=== PATIENT | female | born 1990 | race Caucasian/White ===

== ENCOUNTER 2023-09-30 05:55 | Inpatient (IN) | payer BC ==
--- NOTE | 2023-09-29 15:59 | P.HPOB ---
History of Present Illness H&P Date: 09/29/23 Chief Complaint: Induction of labor This is a 33 y.o. female, 3, para 1, with an estimated date of confinement of 09/29/2023, estimated gestational age of 40-1/7 weeks, who presents for induction of labor. She complains of irregular contractions and pressure. has been uncomplicated. labs: GC/Chlamydia/Trich-neg Hemoglobin-13 Blood type-A+ Antibody screen-neg Rubella-immune RPR-NR HIV-NR Hepatitis C-neg Random glucose-83 Antibody screen-neg Hepatitis B surface antigen-neg 1 hr. GTT-102 GBS-neg OB Hx: . History of 1 miscarriage and 1 vaginal delivery at term. 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 Review of Systems Constitutional: Denies chills, Denies fever Eyes: denies blurred vision, denies pain Ears, nose, mouth and throat: Denies headache, Denies sore throat Cardiovascular: Denies chest pain, Denies shortness of breath Respiratory: Denies cough Gastrointestinal: Reports abdominal pain (irregular contractions) Genitourinary: Reports pelvic pain, Reports Musculoskeletal: Reports low back pain Integumentary: Denies pruritus, Denies rash Neurological: Denies numbness, Denies weakness Psychiatric: Reports anxiety Past Medical History Past Medical History: No Reported History History of Any Multi-Drug Resistant Organisms: None Reported Additional Past Surgical History / Comment(s): [place] teeth Past Anesthesia/Blood Transfusion Reactions: No Reported Reaction Past Psychological History: Anxiety Smoking Status: Never smoker Past Alcohol Use History: None Reported Past Drug Use History: None Reported - Past Family History Mother Family Medical History: No Reported History Medications and Allergies Home Medications Medication Instructions Recorded Confirmed Type No Known Home Medications 11/04/19 11/04/19 History Allergies Allergy/AdvReac Type Severity Reaction Status Date / Time amoxicillin [From Augmentin] Allergy Unknown Verified 11/04/19 20:08 Childhood clavulanic acid Allergy Unknown Verified 11/04/19 20:08 [From Augmentin] Childhood oseltamivir [From Tamiflu] Allergy Rash/Hives Verified 11/04/19 20:08 Exam Osteopathic Statement: *. No significant issues noted on an osteopathic structural exam other than those noted in the History and Physical/Consult. HEENT: within normal limits Heart: regular rate and rhythm Lungs: clear to auscultation bilaterally Abdomen: , non-tender Cervix: 1.5 cm/70%/-2 heart tones: 140's by doppler Extremities: neg. Adan's Assessment and Plan (1) 40 weeks gestation of Status: Acute Code(s): Z3A.40 - 40 WEEKS GESTATION OF SNOMED Code(s): 40113280 Plan: Admission for oxytocin induction of labor. Expectant management. Epidural anesthesia if desired.
[2023-09-30] MEDS ORDERED: METHYLERGONOVINE 0.2 MG/ML 1 ML AMP IM PRN (06:11)
[2023-09-30] MEDS ORDERED: OXYTOCIN 30 UNITS/500 ML NS 30 UNIT in SALINE 1 500ML.BAG IV SCH (06:11)
[2023-09-30] MEDS ORDERED: OXYTOCIN 10 UNIT/ML 1 ML VIAL IM PRN (06:11)
[2023-09-30] MEDS ORDERED: CARBOPROST TROMETHAMINE 250 MCG/ML 1 ML AMP IM PRN (06:11)
[2023-09-30] MEDS ORDERED: LIDOCAINE 1% (10MG/ML) FOR IV START INTRADERMA PRN (06:11)
[2023-09-30] MEDS ORDERED: miSOPROStoL 200 MCG TAB PO PRN (06:11)
[2023-09-30] MEDS ORDERED: TERBUTALINE 1 MG/ML VIAL SQ PRN (06:11)
[2023-09-30] MEDS ORDERED: TRANEXAMIC 1,000 MG/100ML-NACL 1,000 MG in EMPTY BAG 1 BAG IV PRN (06:11)
[2023-09-30] MEDS ORDERED: LIDOCAINE 0.5% (PF) 5 MG/ML (50 ML SDV) SQ PRN (06:11)
[2023-09-30] MEDS: LACTATED RINGERS 1,000 ML IV SCH ×2 (06:40→12:33)
[2023-09-30 07:41] LABS: Basophils % (A) 0 %; Eosinophils # (A) 0.1 k/uL (0-0.7); Eosinophils % (A) 1 %; HCT 34.9 % (34.0-46.0); HGB 11.5 gm/dL (11.4-16.0); Hypochromasia Moderate; Lymphocytes # (A) 2.6 k/uL (1.0-4.8); Lymphocytes % (A) 27 %; MCHC 32.9 g/dL (31.0-37.0); MCV 85.1 fL (80.0-100.0); Mean Platelet Volume 8.7; Monocytes # (A) 0.4 k/uL (0-1.0); Monocytes % (A) 4 %; Neutrophils # (A) 6.5 k/uL (1.3-7.7); Neutrophils % (A) 66 %; Platelet Count 335 k/uL (150-450); Poikilocytosis Slight; RDW 13.7 % (11.5-15.5); WBC 9.8 k/uL (3.8-10.6)
[2023-09-30] MEDS ORDERED: NALBUPHINE 10 MG/ML (10 ML MDV) IV PRN (11:39)
[2023-09-30] MEDS ORDERED: SODIUM CHLORIDE 0.9% 250 ML BAG ONE (13:06)
[2023-09-30] MEDS ORDERED: ROPIVACAINE 5 MG/ML 30 ML VIAL ONE (13:06)
[2023-09-30] MEDS ORDERED: fentaNYL (PF) 50 MCG/ML 5 ML AMP ONE (13:06)
[2023-09-30] MEDS ORDERED: diphenhydrAMINE 50 MG CAP PO PRN (14:18)
[2023-09-30] MEDS ORDERED: HYDROCORTISONE 2.5% RECTAL CREAM 30 GM TUBE RECTAL PRN (14:18)
[2023-09-30] MEDS ORDERED: BENZOCAINE/MENTHOL SPRAY 1 GM/SPRAY AEROSOL TOPICAL PRN (14:18)
[2023-09-30] MEDS ORDERED: ZOLPIDEM 5 MG TAB PO PRN (14:18)
[2023-09-30] MEDS ORDERED: ACETAMINOPHEN TAB 325 MG TAB PO PRN (14:18)
[2023-09-30] MEDS ORDERED: diphenhydrAMINE 50 MG/ML 1 ML VIAL IVP PRN ×2 (14:18)
[2023-09-30] MEDS ORDERED: LANOLIN CREAM 5 GM TUBE TOPICAL PRN (14:18)
[2023-09-30] MEDS ORDERED: diphenhydrAMINE 25 MG CAP PO PRN (14:18)
[2023-09-30] MEDS ORDERED: SIMETHICONE 80 MG CHEWABLE PO PRN (14:18)
[2023-09-30] MEDS: IBUPROFEN 600 MG TAB PO PRN ×2 (15:12→20:58)
--- NOTE | 2023-09-30 16:44 | P.PROBDLV ---
Vaginal Delivery Note - . Vaginal Delivery Note: The patient progressed to complete dilation after oxytocin induction of labor and artificial rupture membranes. She actually went to complete fairly rapidly after her epidural. She began pushing. She pushed for approximately 10 minutes and then 's head came to a crown. With one further push, the infant's head delivered across the perineum in a right occiput anterior lie. At this point the anterior shoulder did not immediately deliver. I palpated and tried to rotate the shoulder and a counterclockwise manner anteriorly. I had her push one further time and initially this did not relieve the shoulder dystocia. I then reached in and posteriorly and rocked the posterior shoulder and the counterclockwise manner and then had her push one further time and the infant's anterior shoulder did deliver within 1 minute. Nuchal cord times one was reduced around the 's body with delivery. was placed on mother's abdomen and nose and mouth were again bulb suctioned. Cord was then clamped and cut and infant was taken to warmer for evaluation. A viable female infant is noted with scores of 8 at 1 minute and 9 at 5 minutes and infant weight of 8 pounds 8.2 ounces. Placenta then delivered intact with a three-vessel cord. Uterus contracted initially fairly well and then became slightly boggy. A gloved hand was placed within the uterine cavity and some more pieces of membrane were removed. Uterus then firmed up fairly well. Inspection of the perineum revealed a right periurethral laceration and a small first-degree perineal laceration. These areas were anesthetized with 1% lidocaine and then sutured with 3-0 Vicryl suture in a running locked fashion. Estimated blood loss is approximately 200 mL's. Both mother and infant are in stable condition. Patient was counseled regarding the shoulder dystocia and advised in the future if she does decide to have another baby that she may want to consider delivery.
[2023-09-30] MEDS: SENNOSIDES-DOCUSATE SODIUM 1 EACH TAB PO SCH (20:58)
[2023-10-01] MEDS: IBUPROFEN 600 MG TAB PO PRN ×2 (02:43→07:56)
[2023-10-01 07:16] LABS: Basophils % (A) 0 %; Eosinophils # (A) 0.1 k/uL (0-0.7); Eosinophils % (A) 1 %; Hypochromasia Moderate; Lymphocytes # (A) 2.3 k/uL (1.0-4.8); Lymphocytes % (A) 20 %; MCH 27.9 pg (25.0-35.0); MCHC 32.6 g/dL (31.0-37.0); MCV 85.7 fL (80.0-100.0); Mean Platelet Volume 7.7; Monocytes # (A) 0.4 k/uL (0-1.0); Monocytes % (A) 3 %; Neutrophils # (A) 8.5 k/uL (1.3-7.7); Neutrophils % (A) 74 %; Platelet Count 262 k/uL (150-450); Poikilocytosis Slight; RBC 3.39 m/uL (3.80-5.40); RDW 13.9 % (11.5-15.5); WBC 11.5 k/uL (3.8-10.6)
[2023-10-01 07:31] LABS: HGB 9.5 gm/dL (11.4-16.0)
[2023-10-01] MEDS: SENNOSIDES-DOCUSATE SODIUM 1 EACH TAB PO SCH (07:56)
[2023-10-01 08:41] VITALS: BP 120/79; PULSE 82; RESP 17; TEMP 97.8
--- NOTE | 2023-10-01 08:41 | P.DS ---
Providers Date of admission: 09/30/23 05:55 Expected date of discharge: 10/01/23 Attending physician: Olga Lidia Powell Primary care physician: Stated None - Discharge Diagnosis(es) (1) 40 weeks gestation of Current Visit: No Status: Acute Hospital Course: This is a 33-year-old female 3 para 1 with an estimated date of confinement of 09/29/2023, estimated gestational age of 40 and one sevenths weeks, who underwent oxytocin induction of labor and delivered vaginally a viable female with scores of 8 at 1 minute and 9 at 5 minutes and infant weight of 8 pounds 8.2 ounces on 09/30/2023. Her delivery was complicated by a shoulder dystocia that was relieved within 1 minute. Please see delivery summary for details of delivery. Her course has been uncomplicated. She is breast-feeding. Lochia is decreasing. Pain has been fairly well-controlled. Vital signs are stable. Abdomen is soft with fundus firm and nontender. Extremities show negative Homans. Impression is status post vaginal delivery complicated by shoulder dystocia day #1. Plan is to discharge home today. Routine instructions are given. She is advised to follow up in the office in 6 weeks for check. She is encouraged to continue taking her vitamin daily. She will be given a prescription for ibuprofen and a breast pump. She is advised to call the office if she has any further questions or concerns prior to her appointment time. Procedures: Oxytocin induction of labor Spontaneous vaginal delivery of a viable female on 09/30/2023 Patient Condition at Discharge: Stable Plan - Discharge Summary New Discharge Prescriptions: New Ibuprofen [Motrin] 600 mg PO Q6HR PRN #60 tab PRN Reason: Mild Pain (Scale 1 To 3) Continue Vit No.179/Iron/Folic [ Tablet] 1 tab PO DAILY Discharge Medication List Vit No.179/Iron/Folic [ Tablet] 1 tab PO DAILY 09/30/23 [History] Ibuprofen [Motrin] 600 mg PO Q6HR PRN #60 tab 10/01/23 [Rx] Follow up Appointment(s)/Referral(s): Olga Lidia Powell DO [Doctor of Osteopathic Medicine] - 11/09/23 11:30 am Activity/Diet/Wound Care/Special Instructions: Instructions 1. Do not begin any exercise program for 3 weeks. 2. Do not resume sexual relations for 3 weeks or longer if uncomfortable. 3. You may take tub baths or showers at any time. 4. You may use tampons if desired after 3 weeks. 5. Keep the area of episiotomy (stitches) clean and dry. 6. If you are not nursing, wear a good fitting, supportive bra during the day and limit fluid intake for at least 1 week to prevent breast engorgement. 7. Call the office, [phone], within the next week to make appointment for your 6 week checkup if it has not already been made. 8. Report any of the following occurrences to the doctor promptly: a. Heavy, excessive bleeding b. Chills, fever c. Burning or frequency of urination d. Pain or redness and breasts if nursing e. Increasing pain or swelling in episiotomy (stitches). In addition to the above instructions, the following additional should be followed: 1. No heavy lifting or straining (exercising) until after 6 week checkup. 2. Keep abdominal incision clean and dry: You may wear a dressing if more comfortable. 3. Make office appointment for 10 days after going home or as instructed by her doctor. Discharge Disposition: HOME SELF-CARE
== END 2023-10-01 15:20 | disposition home or self-care (01) | DRG 807 ==
LOC: 4FBP 05:55
PROVIDERS: ADMIT Obstetrics & Gynecology; ATTEND Obstetrics & Gynecology
PROC: 10E0XZZ Delivery of Products of Conception, External Approach (ICD-10-PCS; principal; 2023-09-30)
PROC: 0UQMXZZ Repair Vulva, External Approach (ICD-10-PCS; principal; 2023-09-30)
PROC: 3E033VJ Introduction of Other Hormone into Peripheral Vein, Percutaneous Approach (ICD-10-PCS; principal; 2023-09-30)
PROC: 0HQ9XZZ Repair Perineum Skin, External Approach (ICD-10-PCS; principal; 2023-09-30)
PROC: 10907ZC Drainage of Amniotic Fluid, Therapeutic from Products of Conception, Via Natural or Artificial Opening (ICD-10-PCS; principal; 2023-09-30)
DX: O48.0 Post-term pregnancy (principal); O99.344 Other mental disorders complicating childbirth; F41.9 Anxiety disorder, unspecified; O62.3 Precipitate labor; O66.0 Obstructed labor due to shoulder dystocia; O69.81X0 Labor and delivery complicated by cord around neck, without compression, not applicable or unspecified; O70.0 First degree perineal laceration during delivery; O71.82 Other specified trauma to perineum and vulva; N85.8 Other specified noninflammatory disorders of uterus; Z28.310 Unvaccinated for COVID-19; Z88.0 Allergy status to penicillin; Z88.7 Allergy status to serum and vaccine; Z3A.40 40 weeks gestation of pregnancy; Z37.0 Single live birth
CPT/HCPCS: 85025; 86850; 86900; 86901